=== PATIENT | female | born 1935 | race Caucasian/White ===

== ENCOUNTER 2018-12-08 05:18 | Emergency (ER) | payer MEDICARE, OTHER ==
[~2018-12-08] VITALS: Ht 160 cm; Wt 70.3 kg
--- OUTSIDE RECORDS SUMMARY | ~2018-12-08 | XMS | Encounter Summary ---
Demographics + + + | Address | [address] | | | [place] [address] | + + + | Home Phone | | + + + | Preferred Language | Unknown | + + + | Marital Status | | + + + | Adventism Affiliation | Unknown | + + + | Race | Unknown | + + + | Ethnic Group | Unknown | + + + Author + + + | Author | [facility] (Historical as of | | | 10-17-18) | + + + | Organization | [facility] (Historical as of | | | 10-17-18) | + + + | Address | Unknown | + + + | Phone | Unavailable | + + + Support + + + + + | Name | Relationship | Address | Phone | + + + + + | Mini Gudino | ECON | [address] | | | | | [place] | | | | | [address] | | + + + + + Care Team Providers + +------+ + | Care Guest Relations Manager Name | Role | Phone | + +------+ + | Kin Max MD | PCP | | + +------+ + Encounter Details +--------+ + + + + | Date | Type | Department | Care Team | Description | +--------+ + + + + | 10/02/ | Orders Only | [facility] | [place] | CKD (chronic kidney | | 2018 | | [place] [address] | disease), stage III; | | | | [address] | | Essential | | | | [place] [address] | | hypertension | | | | [phone] | | | +--------+ + + + + Social History + +-------+ +--------+------+ | Tobacco Use | Types | Packs/Day | Years | Date | | | | | Used | | + +-------+ +--------+------+ | Never Smoker | | | | | + +-------+ +--------+------+ + +---+---+---+ | Smokeless Tobacco: | | | | | Never Used | | | | + +---+---+---+ + + +---------+ + | Alcohol Use | Drinks/We | oz/Week | Comments | | | ek | | | + + +---------+ + | No | | | | + + +---------+ + + + + | Sex Assigned at | Date Recorded | | | | + + + | Not on file | | + + + as of this encounter Plan of Treatment Not on fileas of this encounter Procedures + +--------+ + + + | Procedure Name | Priori | Date/Time | Associated Diagnosis | Comments | | | ty | | | | + +--------+ + + + | CBC W/AUTO DIFF | Routin | 10/01/2018 | CKD (chronic | Results for this | | (REFLEX TO MANUAL) | e | 12:46 PM | kidney disease), | procedure are in the | | | | PDT | stage III Essential | results section. | | | | | hypertension | | + +--------+ + + + | URIC ACID | Routin | 10/01/2018 | CKD (chronic | Results for this | | | e | 12:46 PM | kidney disease), | procedure are in the | | | | PDT | stage III Essential | results section. | | | | | hypertension | | + +--------+ + + + | MAGNESIUM | Routin | 10/01/2018 | CKD (chronic | Results for this | | | e | 12:46 PM | kidney disease), | procedure are in the | | | | PDT | stage III Essential | results section. | | | | | hypertension | | + +--------+ + + + | RENAL FUNCTION PANEL | Routin | 10/01/2018 | CKD (chronic | Results for this | | | e | 12:46 PM | kidney disease), | procedure are in the | | | | PDT | stage III Essential | results section. | | | | | hypertension | | + +--------+ + + + in this encounter Results Uric acid (10/01/2018 12:46 PM) + +-------+ + + | Component | Value | Ref Range | Performed At | + +-------+ + + | URIC ACID | 5.4 | 2.3 - 6.6 | [facility] | | | | | LABORATORY | + +-------+ + + + + | Specimen | + + | Blood | + + + + + + + | Performing | Address | City/State/Zipcode | Phone Number | | Organization | | | | + + + + + | [facility] | [address] | [place] [address] | [phone] | | LABORATORY | [address] | | | + + + + + Renal function panel (10/01/2018 12:46 PM) + + + + + | Component | Value | Ref Range | Performed At | + + + + + | GLUCOSE | 144 (A) | 70 - 100 mg/dL | [facility] | | | | | LABORATORY | + + + + + | BUN | 22 | 6 - 23 mg/dL | [facility] | | | | | LAB[facility]ATORY | + + + + + | CREATININE | 1.16 (A) | 0.70 - 1.11 mg/dL | [facility] | | | | | LAB[facility]ATORY | + + + + + | PHOSPHORUS | 3.0 | 2.5 - 5.0 mg/dL | [facility] | | | | | LAB[facility]ATORY | + + + + + | Albumin | 4.0 | 3.5 - 5.0 | [facility] | | | | | LAB[facility]ATORY | + + + + + | SODIUM | 140 | 132 - 143 mmol/L | [facility] | | | | | LAB[facility]ATORY | + + + + + | POTASSIUM | 4.1 | 3.6 - 5.1 mmol/L | [facility] | | | | | LAB[facility]ATORY | + + + + + | CHLORIDE | 100 | 95 - 112 mmol/L | [facility] | | | | | LAB[facility]ATORY | + + + + + | CO2 | 28 | 19 - 31 mmol/L | [facility] | | | | | LAB[facility]ORY | + + + + + | ANION GAP AGAP | 16.1 | 7 - 21 mmol/L | [facility] | | | | | LAB[facility] | + + + + + | GFR MDRD Non Af Amer | | | [facility] | | | | | LAB[facility]ATORY | + + + + + | Phosphorus,Inorganic | | | [facility] | | | | | LAB[facility]ORY | + + + + + | BUN/CREAT | 19.0 | 6.0 - 28.6 | [facility] | | | | | LAB[facility] | + + + + + | CALCIUM | 9.4 | 8.5 - 10.3 mg/dL | [facility] | | | | | LAB[facility]ORY | + + + + + | EGFR | 45 (A) | 60 - 140 mg/dL | [facility] | | | | | LAB[facility]ATORY | + + + + + + + | Specimen | + + | Blood | + + + + + + + | Performing | Address | City/State/Zipcode | Phone Number | | Organization | | | | + + + + + | [facility] | [address] | [place] [address] | [phone] | | LABORATORY | [address] | | | + + + + + Magnesium (10/01/2018 12:46 PM) + +-------+ + + | Component | Value | Ref Range | Performed At | + +-------+ + + | MAGNESIUM | 1.9 | 1.7 - 2.5 mg/dL | [facility] | | | | | LABORATORY | + +-------+ + + + + | Specimen | + + | Blood | + + + + + + + | Performing | Address | City/State/Zipcode | Phone Number | | Organization | | | | + + + + + | [facility] | [address] | [place] [address] | [phone] | | LABORATORY | [address] | | | + + + + + CBC W/Auto Diff (Reflex to Manual) (10/01/2018 12:46 PM) + + + + + | Component | Value | Ref Range | Performed At | + + + + + | WBC | 6.1 | 4.5 - 11.0 10^3/mL | [facility] | | | | | LABORATORY | + + + + + | RBC | 3.74 (A) | 3.8 - 5.1 10^6/ L | [facility] | | | | | LABORATORY | + + + + + | HGB | 11.5 (A) | 12.0 - 16.0 g/dL | [facility] | | | | | LAB[facility]ORY | + + + + + | HCT | 35.4 | 35 - 45 % | [facility] | | | | | LAB[facility]ATORY | + + + + + | MCV | 94.6 | 81 - 99 fL | [facility] | | | | | LAB[facility]AT[facility] | + + + + + | MCH | 31 | 27 - 33 pg | [facility] | | | | | LAB[facility]ATORY | + + + + + | MCHC | 32 | 30 - 36 g/dL | [facility] | | | | | LABORATORY | + + + + + | PLT | 253 | 140 - 440 K/ L | [facility] | | | | | LABORATORY | + + + + + | RDW SD | 13.9 | 10.5 - 15.0 % | [facility] | | | | | LAB[facility]ATORY | + + + + + | MPV | | fL | [facility] | | | | | LAB[facility] | + + + + + | DIFF TYPE | | | [facility] | | | | | LAB[facility] | + + + + + | NEUTROPHILS | 54.2 | 39 - 80 % | [facility] | | | | | LAB[facility]ATORY | + + + + + | LYMPHOCYTES | 30.5 | 24 - 44 % | [facility] | | | | | LABORATORY | + + + + + | MONOCYTES | 10.7 | 0 - 12 % | [facility] | | | | | LAB[facility]ATORY | + + + + + | EOSINOPHILS | 4.1 | 0 - 6 % | [facility] | | | | | LAB[facility]ATORY | + + + + + | BASOPHILS | 0.5 | 0 - 2 % | [facility] | | | | | LAB[facility]ATORY | + + + + + | NEUTROPHILS ABS | | / L | [facility] | | | | | LABORATORY | + + + + + | LYMPHOCYTES ABS | | / L | [facility] | | | | | LAB[facility]ATORY | + + + + + | MONOCYTES ABS | | / L | [facility] | | | | | LAB[facility]ATORY | + + + + + | EOSINOPHILS ABS | | / L | [facility] | | | | | LABORATORY | + + + + + | BASOPHILS ABS | | / L | [facility] | | | | | LAB[facility]ATORY | + + + + + + + | Specimen | + + | Blood | + + + + + + + | Performing | Address | City/State/Zipcode | Phone Number | | Organization | | | | + + + + + | [facility] | [address] | [place] [address] | [phone] | | LABORATORY | [address] | | | + + + + + in this encounter Visit Diagnoses + + | Diagnosis | + + | CKD (chronic kidney disease), stage III | + + | Essential hypertension | + + | Unspecified essential hypertension | + +"
--- OUTSIDE RECORDS SUMMARY | ~2018-12-08 | XMS | Clinical Summary ---
Demographics + + + | Address | [address] | | | [place] [address] | + + + | Home Phone | | + + + | Preferred Language | Unknown | + + + | Marital Status | | + + + | Scientologist Affiliation | Unknown | + + + | Race | Unknown | + + + | Ethnic Group | Unknown | + + + Author + + + | Author | [facility] | | | and [place] | + + + | Organization | [facility] | | | and [place] | + + + | Address | Unknown | + + + | Phone | Unavailable | + + + Support + + + + + | Name | Relationship | Address | Phone | + + + + + | DELANO FERNANDO ECON | Unknown | | + + + + + | Delano Fernando | ECON | [address] | | | | | [place] | | | | | [address] | | + + + + + Care Team Providers + +------+ + | Care Parts Clerk Name | Role | Phone | + +------+ + | Kin Max MD | PCP | | + +------+ + Allergies + + + + + + | Active Allergy | Reactions | Severity | Noted | Comments | | | | | Date | | + + + + + + | Iodinated Diagnostic | Other (See Comments) | Medium | 04/17/19 | Does not remember | | Agents | | | 13 | | + + + + + + | Sulfa Antibiotics | Other (See Comments) | Medium | 04/17/19 | Unable to remember | | | | | 13 | | + + + + + + Medications + + + +---------+------+------+-------+ | Medication | Sig | Dispensed | Refills | Star | End | Statu | | | | | | t | Date | s | | | | | | Date | | | + + + +---------+------+------+-------+ | amLODIPine | Take 10 mg by mouth | | 0 | 02/1 | | Activ | | (NORVASC) 10 MG | daily. | | | 07/20 | | e | | tablet | | | | 13 | | | + + + +---------+------+------+-------+ | aspirin 81 mg EC | Take 81 mg by mouth | | 0 | 02/1 | | Activ | | tablet | daily. | | | 20 | | e | | | | | | 13 | | | + + + +---------+------+------+-------+ | calcium, as | Take 600 mg by mouth | | 0 | 02/1 | | Activ | | carbonate, (OS-SHAILESH) | daily. | | | 20 | | e | | 600 MG TABS | | | | 13 | | | + + + +---------+------+------+-------+ | ferrous sulfate | Take 1 tablet by | | 0 | 02/1 | | Activ | | (FERATAB) 300 (60 | mouth every other | | | 6/20 | | e | | Fe) MG TABS | day. | | | 13 | | | + + + +---------+------+------+-------+ | simvastatin | Take 20 mg by mouth | | 0 | /2 | | Activ | | (ZOCOR) 20 mg tablet | daily. | | | 03/22 | | e | | | | | | 15 | | | + + + +---------+------+------+-------+ | oxybutynin | | | 0 | /2 | | Activ | | (DITROPAN) 5 mg | | | | 11/20 | | e | | tablet | | | | 19 | | | + + + +---------+------+------+-------+ Active Problems + + + | Problem | Noted Date | + + + | Essential hypertension | 10/03/2017 | + + + | Rheumatoid arthritis involving multiple sites with positive | 08/01/2016 | | rheumatoid factor | | + + + | High risk medication use | 08/01/2016 | + + + | ILD (interstitial lung disease) | 08/01/2016 | + + + | Primary osteoarthritis involving multiple joints | 08/01/2016 | + + + | Secondary hyperparathyroidism | 08/05/2012 | + + + + + | Overview: Mild. | + + + + + | Heme positive stool | 04/21/2012 | + + + | CKD (chronic kidney disease), stage III | 04/21/2012 | + + + | Pulmonary embolism | 04/18/2012 | + + + | Screening for hyperlipidemia | 04/18/2012 | + + + | Elevated troponin | 04/17/2012 | + + + | Pneumonia multifocal | 04/17/2012 | + + + | Hyperglycemia | 04/17/2012 | + + + | Anemia | 04/17/2012 | + + + Encounters +--------+ + + + + | Date | Type | Specialty | Care Team | Description | +--------+ + + + + | 10/01/ | Orders Only | Nephrology | Bandar Mccann, | Chronic kidney | | 2019 | | | [employer] | disease, stage III | | | | | | (moderate) (HCC); | | | | | | Essential (primary) | | | | | | hypertension | +--------+ + + + + from Last 3 Months Family History + + +------+ + | Medical History | Relation | Name | Comments | + + +------+ + | Cancer | Brother | | ovarian cancer | + + +------+ + | Cancer | Father | | colon cancer | + + +------+ + | Kidney disease | Maternal | | | | | Grandmoth | | | | | er | | | + + +------+ + | Kidney disease | Mother | | | + + +------+ + | Cancer | Paternal | | stomach cancer | | | Grandfath | | | | | er | | | + + +------+ + | Cancer | Sister | | breast cancer | + + +------+ + + +------+ + + | Relation | Name | Status | Comments | + +------+ + + | Brother | | | | + +------+ + + | Brother | | | | + +------+ + + | Father | | | | + +------+ + + | Father | | | | + +------+ + + | Maternal Grandmother | | | | + +------+ + + | Maternal Grandmother | | | | + +------+ + + | Mother | | | | + +------+ + + | Mother | | | | + +------+ + + | Paternal Grandfather | | | | + +------+ + + | Paternal Grandfather | | | | + +------+ + + | Sister | | | | + +------+ + + | Sister | | | | + +------+ + + Social History + +-------+ +--------+------+ | Tobacco Use | Types | Packs/Day | Years | Date | | | | | Used | | + +-------+ +--------+------+ | Never Smoker | | | | | + +-------+ +--------+------+ + + + | Sex Assigned at | Date Recorded | | | | + + + | Not on file | | + + + + + + + | Job Start Date | Occupation | Industry | + + + + | Not on file | Not on file | Not on file | + + + + + + + + | Travel History | Travel Start | Travel End | + + + + + + | No recent travel history available. | + + Last Filed Vital Signs + + + + | Vital Sign | Reading | Time Taken | + + + + | Blood Pressure | 122/58 | 10/02/2018 1011 PDT | + + + + | Pulse | 62 | 10/02/2018 1011 PDT | + + + + | Temperature | 36.6 C (97.9 F) | 10/03/2017 1157 PDT | + + + + | Respiratory Rate | - | - | + + + + | Oxygen Saturation | - | - | + + + + | Inhaled Oxygen | - | - | | Concentration | | | + + + + | Weight | 74.6 kg (164 lb 8 | 10/02/20181010 PDT | | | oz) | | + + + + | Height | 160 cm (5' 3") | 10/02/20181010 PDT | + + + + | Body Mass Index | 29.14 | 10/02/20181010 PDT | + + + + Plan of Treatment + + + + + | Health Maintenance | Due Date | Last Done | Comments | + + + + + | Vaccine: | | | | | Dtap/Tdap/Td (1 - | 7 | | | | Tdap) | | | | + + + + + | Vaccine: Zoster (1 | | | | | of 2) | 8 | | | + + + + + | Vaccine: | | | | | Pneumococcal 65+ | 3 | | | | Low/Medium Risk (1 | | | | | of 2 - PCV13) | | | | + + + + + | Adult Annual | | | | | Wellness Visit | 9 | | | + + + + + | Vaccine: Influenza | | 04/19/2012 | | | (#1) | 9 | | | + + + + + Procedures + +--------+ + + + | Procedure Name | Priori | Date/Time | Associated Diagnosis | Comments | | | ty | | | | + +--------+ + + + | EXTERNAL LAB: CBC | Routin | 10/01/2018 | | Results for this | | | e | 12:46 PDT | | procedure are in the | | | | | | results section. | + +--------+ + + + | URIC ACID | Routin | 10/01/2018 | | Results for this | | | e | 12:46 PDT | | procedure are in the | | | | | | results section. | + +--------+ + + + | MAGNESIUM | Routin | 10/01/2018 | | Results for this | | | e | 12:46 PDT | | procedure are in the | | | | | | results section. | + +--------+ + + + | RENAL FUNCTION PANEL | Routin | 10/01/2018 | | Results for this | | | e | 12:46 PDT | | procedure are in the | | | | | | results section. | + +--------+ + + + from Last 3 Months Results External Lab: CBC (10/01/2018 12:46 PDT) + + + + + + | Component | Value | Ref Range | Performed | Pathologist | | | | | At | Signature | + + + + + + | WBC | 6.1 | 4.5 - 11.0 10 | EXTERNAL | | | | | | LAB | | + + + + + + | RED CELL | 3.74 (A) | 3.8 - 5.1 10 | EXTERNAL | | | COUNT | | | LAB | | + + + + + + | Hgb | 11.5 (A) | 12.0 - 16.0 | EXTERNAL | | | | | g/dL | LAB | | + + + + + + | Hematocrit, | 35.4 | 35 - 45 % | EXTERNAL | | | POC | | | LAB | | + + + + + + | MCV | 94.6 | 81 - 99 fL | EXTERNAL | | | | | | LAB | | + + + + + + | MCH | 31 | 27 - 33 pg | EXTERNAL | | | | | | LAB | | + + + + + + | MCHC | 32 | 30 - 36 g/dL | EXTERNAL | | | | | | LAB | | + + + + + + | Platelet | 253 | 140 - 440 K/ L | EXTERNAL | | | Count | | | LAB | | | Plasma | | | | | + + + + + + | RDW-CV | 13.9 | 10.5 - 15.0 % | EXTERNAL | | | | | | LAB | | + + + + + + | MPV | | fL | EXTERNAL | | | | | | LAB | | + + + + + + | Differentia | | | EXTERNAL | | | l Type | | | LAB | | + + + + + + | % | 54.2 | 39 - 80 % | EXTERNAL | | | Neutrophils | | | LAB | | + + + + + + | % | 30.5 | 24 - 44 % | EXTERNAL | | | Lymphocytes | | | LAB | | + + + + + + | % Monocytes | 10.7 | 0 - 12 % | EXTERNAL | | | | | | LAB | | + + + + + + | % | 4.1 | 0 - 6 % | EXTERNAL | | | Eosinophils | | | LAB | | + + + + + + | % Basophils | 0.5 | 0 - 2 % | EXTERNAL | | | | | | LAB | | + + + + + + | Absolute | | / L | EXTERNAL | | | Neutrophils | | | LAB | | + + + + + + | Absolute | | / L | EXTERNAL | | | Lymphocytes | | | LAB | | + + + + + + | Absolute | | / L | EXTERNAL | | | Monocytes | | | LAB | | + + + + + + | Absolute | | / L | EXTERNAL | | | Eosinophils | | | LAB | | + + + + + + | Absolute | | / L | EXTERNAL | | | Basophils | | | LAB | | + + + + + + + + | Specimen | + + | Blood | + + + +---------+ + + | Performing | Address | City/State/Zipcode | Phone Number | | Organization | | | | + +---------+ + + | EXTERNAL LAB | | | | + +---------+ + + Uric Acid (10/01/2018 12:46 PDT) + +-------+ + + + | Component | Value | Ref Range | Performed | Pathologist | | | | | At | Signature | + +-------+ + + + | Uric Acid | 5.4 | 2.3 - 6.6 | EXTERNAL | | | | | | LAB | | + +-------+ + + + + + | Specimen | + + | Blood | + + + +---------+ + + | Performing | Address | City/State/Zipcode | Phone Number | | Organization | | | | + +---------+ + + | EXTERNAL LAB | | | | + +---------+ + + Magnesium (10/01/2018 12:46 PDT) + +-------+ + + + | Component | Value | Ref Range | Performed | Pathologist | | | | | At | Signature | + +-------+ + + + | Magnesium | 1.9 | 1.7 - 2.5 mg/dL | EXTERNAL | | | | | | LAB | | + +-------+ + + + + + | Specimen | + + | Blood | + + + +---------+ + + | Performing | Address | City/State/Zipcode | Phone Number | | Organization | | | | + +---------+ + + | EXTERNAL LAB | | | | + +---------+ + + Renal Function Panel (10/01/2018 12:46 PDT) + + + + + + | Component | Value | Ref Range | Performed | Pathologist | | | | | At | Signature | + + + + + + | Glucose, | 144 (A) | 70 - 100 mg/dL | EXTERNAL | | | Fasting | | | LAB | | + + + + + + | BUN | 22 | 6 - 23 mg/dL | EXTERNAL | | | | | | LAB | | + + + + + + | Creatinine | 1.16 (A) | 0.70 - 1.11 | EXTERNAL | | | | | mg/dL | LAB | | + + + + + + | PHOSPHORUS | 3.0 | 2.5 - 5.0 mg/dL | EXTERNAL | | | | | | LAB | | + + + + + + | Albumin | 4.0 | 3.5 - 5.0 | EXTERNAL | | | | | | LAB | | + + + + + + | Na | 140 | 132 - 143 | EXTERNAL | | | | | mmol/L | LAB | | + + + + + + | K | 4.1 | 3.6 - 5.1 | EXTERNAL | | | | | mmol/L | LAB | | + + + + + + | Cl | 100 | 95 - 112 mmol/L | EXTERNAL | | | | | | LAB | | + + + + + + | CO2 | 28 | 19 - 31 mmol/L | EXTERNAL | | | | | | LAB | | + + + + + + | Anion Gap | 16.1 | 7 - 21 mmol/L | EXTERNAL | | | | | | LAB | | + + + + + + | eGFR if not | | | EXTERNAL | | | | | | LAB | | | [facility] | | | | | + + + + + + | Phosphorus, | | | EXTERNAL | | | Inorganic | | | LAB | | + + + + + + | BUN/Creatin | 19.0 | 6.0 - 28.6 | EXTERNAL | | | ine Ratio | | | LAB | | + + + + + + | Calcium | 9.4 | 8.5 - 10.3 | EXTERNAL | | | | | mg/dL | LAB | | + + + + + + | Estimated | 45 (A) | 60 - 140 mg/dL | EXTERNAL | | | GFR | | | LAB | | + + + + + + + + | Specimen | + + | Blood | + + + +---------+ + + | Performing | Address | City/State/Zipcode | Phone Number | | Organization | | | | + +---------+ + + | EXTERNAL LAB | | | | + +---------+ + + from Last 3 Months
--- OUTSIDE RECORDS SUMMARY | ~2018-12-08 | XMS | Clinical Summary ---
Demographics + + + | Address | [address] | | | [place] [address] | + + + | Home Phone | | + + + | Preferred Language | Unknown | + + + | Marital Status | | + + + | Oriental Orthodox Affiliation | Unknown | + + + | Race | Unknown | + + + | Ethnic Group | Unknown | + + + Author + + + | Author | [facility] (Historical as of | | | 10-17-18) | + + + | Organization | [facility] (Historical as of | | | 10-17-18) | + + + | Address | Unknown | + + + | Phone | Unavailable | + + + Support + + + + + | Name | Relationship | Address | Phone | + + + + + | Mini Fernando | ECON | [address] | | | | | [place] | | | | | [address] | | + + + + + Care Team Providers + +------+ + | Care Billing Checker Name | Role | Phone | + +------+ + | Kin Max MD | PP | | + +------+ + Allergies + [...] | + + + + + + Current Medications + + +-------+---------+------+------+-------+ | Prescription | Sig. | Disp. | Refills | Star | End | Statu | | | | | | t | Date | s | | | | | | Date | | | + + +-------+---------+------+------+-------+ | amlodipine | Take 10 mg by mouth | | | | | Activ | | (NORVASC) 10 MG | daily. | | | | | e | | tablet | | | | | | | + + +-------+---------+------+------+-------+ | aspirin EC 81 MG | Take 81 mg by mouth | | | | | Activ | | EC tablet | daily. | | | | | e | + + +-------+---------+------+------+-------+ | calcium carbonate | Take 600 mg by mouth | | | | | Activ | | (OS-SHAILESH) 600 MG TABS | daily. | | | | | e | + + +-------+---------+------+------+-------+ | Ferrous Sulfate | Take 1 tablet by | | | | | Activ | | 300 (60 FE) MG TABS | mouth every other | | | | | e | | | day. | | | | | | + + +-------+---------+------+------+-------+ | simvastatin | Take 20 mg by mouth | | | 11/02 | | Activ | | (ZOCOR) 20 MG tablet | daily. | | | 03/22 | | e | | | | | | 15 | | | + + +-------+---------+------+------+-------+ | oxybutynin | | | | 03/04 | | Activ | | (DITROPAN) 5 MG | | | | 11/20 | | e | | tablet | | | | 19 | | | + + +-------+---------+------+------+-------+ Active Problems + + + | Problem | Noted Date | + + + | Essential hypertension | 10/03/2017 | + + + | Rheumatoid arthritis involving multiple sites with positive | 08/01/2016 | | rheumatoid factor (HCC) | | + + + + + | Last Assessment & Plan: Responding well to current treatment | | plan. No change in treatment plan. Patient understands that | | treatment is shelter and if patient fails to continue regimen , | | the disease has propensity to flare.Discussed that she may ask | | her PCP to manage the Arava so that she doesn't have to travel | | here every 3-4 months. She should have her CBC and CMP checked | | every 3-4 months by her PCP should they agree to this. We would | | be happy to see her yearly or PRN. | + + + + + | High risk medication use | 08/01/2016 | + + + + + | Last Assessment & Plan: Basic labs Monitored (CBC,CMP and | | ESR): OrderedLabs routinely ordered due to high risk medication | | use- Monitored for cytopenias, liver toxicity, renal dysfunction | | and disease activity. Hepatitis panel- UPDATEThis will be checked | | every 5 years based on patients risk or at time of biologic drug | | change. Chest x-ray satisfactory 2013 | + + + + + | ILD (interstitial lung disease) | 08/01/2016 | + + + + + | Last Assessment & Plan: Patient reports as stable. Followed | | by PCP | + + + + + | Primary osteoarthritis involving multiple joints | 08/01/2016 | + + + + + | Last Assessment & Plan: Stable. Patient is taking OTC | | analgesics PRN for pain. | + + + + + | Secondary hyperparathyroidism (HCC) | 08/05/2012 | + + + + + | Overview: Mild. | + + + + + | Heme positive stool | 04/21/2012 | + + + | CKD (chronic kidney disease), stage III | 04/21/2012 | + + + + + | Last Assessment & Plan: We will get nephology notes and | | consider decreasing Arava dose. Current calculated Creatinine | | clearance is 46.21ml/min | + + + + + | Pulmonary embolism (HCC) | 04/18/2012 | + + + | Screening for hyperlipidemia | 04/18/2012 | + + + | Elevated troponin | 04/17/2012 | + + + | Pneumonia multifocal | 04/17/2012 | + + + | Hyperglycemia | 04/17/2012 | + + + | Anemia | 04/17/2012 | + + + Resolved Problems + + + + | Problem | Noted | Resolved | | | Date | Date | + + + + | Hypokalemia | 04/17/19 | | | | 13 | 9 | + + + + Encounters +--------+ + + + + | Date | Type | Specialty | Care Team | Description | +--------+ + + + + | 10/02/ | Office | | Bandar Mccann, | CKD (chronic kidney | | 2019 | Visit | | [facility] | disease), stage III | | | | | | (Primary Dx); | | | | | | Essential | | | | | | hypertension | +--------+ + + + + | 10/02/ | Documentati | | Oliver | Daniel Only (10/01/18) | | 2018 | on Only | | [place] | | +--------+ + + + + | 10/02/ | Orders Only | | Oliver | CKD (chronic kidney | | 2018 | | | [place] | disease), stage III; | | | | | | Essential | | | | | | hypertension | +--------+ + + + + | 09/24/ | Telephone | | Mary Castillo (appt/labs | 2018 | | | RUSSELL Diamond | reminder) | +--------+ + + + + from Last 3 Months Immunizations + + + + | Name | Dates Previously Given | Next Due | + + + + | Influenza Split | 04/19/2012 | | + + + + Family History + + +------+ + | [...] on file | | + + + Last Filed Vital Signs + + + + | Vital Sign | Reading | Time Taken | + + + + | Blood Pressure | 122/58 | 10/02/2018 10:09 AM PDT | + + + + | Pulse | 62 | 10/02/2018 10:09 AM PDT | + + + + | Temperature | 36.6 C (97.9 F) | 10/03/2017 11:51 AM PDT | + + + + | Respiratory Rate | 16 | 08/13/2013 11:13 AM PDT | + + + + | Oxygen Saturation | 96% | 10/03/2017 11:51 AM PDT | + + + + | Inhaled Oxygen | - | - | | Concentration | | | + + + + | Weight | 74.6 kg (164 lb 8 | 10/02/2018 10:09 AM PDT | | | oz) | | + + + + | Height | 160 cm (5' 3") | 10/02/2018 10:09 AM PDT | + + + + | Body Mass Index | 29.14 | 10/02/2018 10:09 AM PDT | + + + + Plan [...] | + + + + + | DEXA SCAN SCREENING | | | | | | 3 | | | + + + + + | Vaccine: | | | | | Pneumococcal 65+ | 3 | | | | Low/Medium Risk (1 | | | | | of 2 - PCV13) | | | | + + + + + | Vaccine: Influenza | | | | | (#1) | 9 | [...] | | + +--------+ + + + from Last 3 Months Results CBC W/Auto Diff (Reflex to Manual) (10/01/2018 [...] + + + | [facility] | [address] | [place] [address] | [phone] | | LABORATORY | Blvd[address] | | | + + + + + Uric acid (10/01/2018 12:46 PM) + +-------+ [...] + + + | [facility] | [address] | [place] [address] | [phone] | | LABORATORY | Blvd[address] | | [...] | [facility] | [address] | [place] [address] | [phone] | | LABORATORY | Blvd. | | [...] + + + | [facility] | [address] | [place] [address] | [phone] | | LABORATORY | Blvd. | | | + + + + + from Last 3 Months Insurance + +--------+ +------+-------+ + | Payer | Benefi | Subscriber | Type | Phone | Address | | | t Plan | ID | | | | | | / | | | | | | | Group | | | | | + +--------+ +------+-------+ + | MEDICARE | MEDICA | [id number] | | | [address] | | | [place] | | | | [place] [phone] | | | IP-OP | | | | | + +--------+ +------+-------+ + | [employer] | ODS | [id number] | | | | | | HEALTH | | | | | | | PLAN | | | | | + +--------+ +------+-------+ + + +--------+ +--------+ + + | Guarantor Name | Accoun | Relation to | Date | Phone | Billing Address | | | t Type | Patient | of | | | | | | | | | | + +--------+ +--------+ + + | MINI FERNANDO | Person | Self [birth year] | Home: | [address] | | | al/Fam | | 1936 | [phone] [place] | | | [place] | | | [address] | [phone] | + +--------+ +--------+ + +
--- OUTSIDE RECORDS SUMMARY | ~2018-12-08 | XMS | Encounter Summary ---
Demographics + + + | Address | [address] | | | [place] [address] | + + + | Home Phone | | + + + | Preferred Language | Unknown | + + + | Marital Status | | + + + | Latter Day Affiliation | Unknown | + + + | Race | Unknown | + + + | Ethnic Group | Unknown | + + + Author + + + | Author | [facility] | | | and [place] | + + + | Organization | [facility] | | | and [place] | [...] | Delano Fernando | ECON | [address] | | | | | [place] | | | | | [address] | | + + + + + Care Team Providers + +------+ + | Care [employer] Assistant Manager Name | Role | Phone | + +------+ + PCP | Unavailable | + +------+ + Encounter Details +--------+ + + + + | Date | Type | Department | Care Team | Description | +--------+ + + + + | 10/01/ | Orders Only | [facility] | Bandar Mccann, | Chronic kidney | | 2019 | | NEPHROLOGY [place] | PRIVATE DETECTIVE [address] | disease, stage III | | | | [address] | [address] | (moderate) (HCC); | | | | [address], [place] | [place] [address] | Essential (primary) | | | | [address] | [phone] | hypertension | | | | [phone] | | | +--------+ + + + + Social History + +-------+ +--------+------+ | Tobacco Use | Types | Packs/Day | Years | Date | | | | | Used | | + +-------+ +--------+------+ | Never Assessed | | | | | + +-------+ [...] recent travel history available. | + + documented as of this encounter Plan of Treatment + +--------+ + + | Name | Priori | Associated Diagnoses | Order Schedule | | | ty | | | + +--------+ + + | Protein/Creatinine Ratio, Urine | Routin | Chronic kidney | Expected: | | | e | disease, stage III | 09/24/2018, Expires: | | | | (moderate) (HCC) | 04/10/2019 | | | | Essential (primary) | | | | | hypertension | | + +--------+ + + documented as of this encounter Procedures + +--------+ + [...] section. | + +--------+ + + + documented in this encounter Results External Lab: CBC (10/01/2018 12:46 PDT) [...] | | | LAB | | | [facility] | | | | | + + [...] | | | + +---------+ + + documented in this encounter Visit Diagnoses + + | Diagnosis | + + | Chronic kidney disease, stage III (moderate) (HCC) Chronic kidney disease, Stage III | | (moderate) | + + | Essential (primary) hypertension Unspecified essential hypertension | + + documented in this encounter"
--- OUTSIDE RECORDS SUMMARY | ~2018-12-08 | XMS | Encounter Summary ---
Demographics + + + | Address | [address] | | | [place] [address] | + + + | Home Phone | | + + + | Preferred Language | Unknown | + + + | Marital Status | | + + + | Amish Affiliation | Unknown | + + + | Race | Unknown | + + + | Ethnic Group | Unknown | + + + Author + + + | Author | [facility] (Historical as of | | | 10-17-18) | + + + | Organization | [facility] (Historical as of | | | 10-17-18) [...] [place] | | | | | [address] | | + + + + + Care Team Providers + +------+ + | Care Voltage Regulator Assembler Name | Role | Phone | + +------+ + | Kin Max MD PCP | | + +------+ + Encounter Details +--------+---------+ + + + | Date | Type | Department | Care Team | Description | +--------+---------+ + + + | 10/02/ | Office | [facility] | Bandar Mccann, | CKD (chronic kidney | | 2019 | Visit | [address] [address] | [place] ADMINISTRATOR [place] | disease), stage III | | | | [address] | [address] | (Primary Dx); | | | | [place] [address] | [place] [address] | Essential | | | | [phone] | [phone] | hypertension | | | | | | | +--------+---------+ + + + Social History + +-------+ [...] + + + as of this encounter Last Filed Vital Signs + + + + | Vital Sign | Reading | Time Taken | + + + + | Blood Pressure | 122/58 | 10/02/2018 10:09 AM PDT | + + + + | Pulse | 62 | 10/02/2018 10:09 AM PDT | + + + + | Temperature | - | - | + + + + | Respiratory [...] AM PDT | + + + + in this encounter Instructions Patient Instructions - Bandar Mccann ARNP - 10/02/2018 10:20 AM PDTMedication Changes made at today's visit: None Next LAB WORK in about: 6 Months You do NOT need to fast for this lab work, keep hydrated. Next APPOINTMENT: in about 6 Months Keep hydrated with water. Please have lab work done 1 weeks prior to your appointment. Make sure you are well hydrated prior to going to the lab and are able to give a urine s ample. Call the office with any questions or concerns. Please bring all of your medications in the pharmacy bottles to every visit so a medicat ion review can be done. We recommend to measure your BP at least daily, twice daily if possible, record it and b ring record to every appointment with every healthcare provider you see. DO NOT TAKE any anti-inflammatory drugs such Ibuprofen, Diclofenac, Motrin, Advil, Delong xicam, naprosyn (Aleve), Celebrex, decongestants containing pseudoephedrine (such as some fo mary of Sudafed or Actifed) or herbal supplements (because of lack of FDA approval) Call our office if you have blood pressure over 150/90 on more than one occasion, or low blood pressure that is concerning. If you experience diarrhea and /or vomiting for more than 24 hours with no relief please seek medical help immediately. The treatments that are recommended to slow the progression of Chronic Kidney Disease in clude blood sugar control, blood pressure control, healthy body weight (BMI less than 30 kg/ m2), avoid sedentary lifestyle, avoid smoking/ tobacco, avoid NSAIDs, worsening nausea, vomi ting, no or low appetite and/or frequent diarrhea and avoid IV contrast. Do not drink alcohol, drink water when thirsty. If you smoke, you must quit. Smoking worsens kidney disease. Avoid caffeinated beverages such as soda pop, coffee, espresso drinks, energy drinks. Make all healthcare providers aware of the presence of kidney disease and request to adj ust all medications according to level of kidney function and to avoid nephrotoxic medicatio ns if possible, including but not limited to antibiotics. Call us with any questions. Short term use of acetaminophen (Tylenol) for fever or pain is okay. If in doubt please call our office for verification. Avoid exposure to IV contrast agents (DYE) used in CT scans, MRI's, Fluoroscopy, or in h eart catheterization procedures unless necessary or for a life saving procedure. Low salt diet, less than 2gm daily. in this encounter Progress Notes Bandar Mccann ARNP - 10/02/2018 10:20 AM PDTFormatting of this note may be different f rom the original. Patient Active Problem List Diagnosis Elevated troponin Pneumonia multifocal Hyperglycemia Anemia Pulmonary embolism (HCC) Screening for hyperlipidemia Heme positive stool CKD (chronic kidney disease), stage III Secondary hyperparathyroidism (HCC) Rheumatoid arthritis involving multiple sites with positive rheumatoid factor (HCC) High risk medication use ILD (interstitial lung disease) Primary osteoarthritis involving multiple joints Essential hypertension Dear Dr. Max: Thank you for the opportunity to see Ms. Gudino in the office today to follow up on her CKD and its associated complications. As you are familiar with her case, I will not state her p ast history in detail. Briefly, she is a 83 y.o. female patient with past history as deline ated above. She sees Rheumatology for RA, on leflunomide. The patient has history of hypertension since ~1999. her BP control has been reportedly adrienne quate. she denies any history of prolonged exposure to NSAIDs or recent exposure to known ne phrotoxins. she denies any recurrent nephrolithiasis or pyelonephritis. she tells me that sh e's had no history of urinary retention, gross hematuria or dysuria. she has mild incontinen ce symptoms. No symptoms of UTI. she has 1 or 2 nightly nocturia. No history of passing kidney stones. s he has no foamy urine either. her baseline Creatinine is 1.08. There is no family history of renal genetic diseases such as PKD. she says that she feels 'good ' today, she has chronic SOB, wears O2 continously, she has c hronic diarrhea and constipation, chronic arthritis pains in her hands. she denies any blur red vision tinnitus, headache, fever, chills, or cough. No nausea, vomiting, abdominal pain , melena, or hematochezia. No chest pain, palpitation, dizziness, loss of consciousness, or thopnea, paroxysmal nocturnal dyspnea, or leg edema. She drinks mostly coffee and little water. The following portions of the patient's history were reviewed and updated as appropriate: a llergies, current medications, past medical history, past social history, past surgical hist ory, family history and problem list. As in History of Present Illness & in Assessment. All the twelve systems were reviewed and were otherwise negative. Current Outpatient Prescriptions Medication Sig Dispense Refill amlodipine (NORVASC) 10 MG tablet Take 10 mg by mouth daily. aspirin EC 81 MG EC tablet Take 81 mg by mouth daily. calcium carbonate (OS-SHAILESH) 600 MG TABS Take 600 mg by mouth daily. Ferrous Sulfate 300 (60 FE) MG TABS Take 1 tablet by mouth every other day. oxybutynin (DITROPAN) 5 MG tablet simvastatin (ZOCOR) 20 MG tablet Take 20 mg by mouth daily. leflunomide (ARAVA) 20 MG tablet No current facility-administered medications for this visit. Physical Exam: BP 122/58 (BP Location: Left upper arm, Patient Position: Sitting) | Pulse 62 | Ht 1.6 m (5' 3") | Wt 74.6 kg (164 lb 8 oz) | BMI 29.14 kg/m General appearance: Pleasant, not in acute distress. Neck: Supple without tracheal deviation or jugular venous distension. Head and ENT: Head is atraumatic. The oropharynx is without erythema or thrush. Eyes: Anicteric. The extraocular muscle movements are normal. Lungs: Clear to auscultation bilaterally. There are no wheezes. On continuous 2L O2 per NC . Heart: Regular rate and rhythm without any rub, gallop. no murmur. Abdominal exam: Soft and nontender with normal bowel sounds. Musculoskeletal: No costovertebral angle tenderness bilaterally. Extremities: Warm to touch with trace leg edema. There is no cyanosis. Skin: There are no rashes, petechiae, or ecchymosis. Neurological: Awake, alert, and oriented to time, place, and person. Psychiatric: The patient s behavior is normal. Judgment and thought content are normal. Lab Results Component Value Date BUN 22 10/01/2018 CREATININE 1.16 (A) 10/01/2018 EGFR 45 (A) 10/01/2018 NA 140 10/01/2018 K 4.1 10/01/2018 CL 100 10/01/2018 CO2 28 10/01/2018 CA 9.4 10/01/2018 PHOS 3.0 10/01/2018 MG 1.9 10/01/2018 ALB 4.0 10/01/2018 HGB 11.5 (A) 10/01/2018 URICACID 5.4 10/01/2018 WBC 6.1 10/01/2018 HCT 35.4 10/01/2018 FERRITIN 226.1 (A) 04/06/2018 LABIRON 26.5 04/06/2018 LABPROT 406.3 (A) 04/06/2018 [id number] 45 04/07/2017 Assessment: Ms. Gudino is a 83 y.o. female patient with stage IIIA CKD on a background of hypertension. The most likely pathology here is hypertensive nephrosclerosis/arteriolosclerosis. RENAL FUNCTION: Relatively stable BLOOD PRESSURE: Reportedly controlled - No log today BLOOD SUGAR: Reportedly normal ELECTROLYTES: Normal ANEMIA: Mild VITAMIN D: Normal with replacement PARATHYROID HORMONE: Mild URIC ACID: Ok PROTEINURIA: Minimal URINALYSIS: No uti or hematuria VOLUME STATUS: Euvolumic. Discussions: I discussed today with Ms.. Gudino the meaning of her mild CKD and the interaction of that w ith her hypertension. I stressed the importance of keeping her BP controlled and avoiding getting dehydrated if w e are to have a chance at helping preserve her renal function. She showed good understandin g. I gave her instructions on how to chart her blood pressure [facility] the [facility]. She is to call us if they fall outside of the optimal provided range. She will bring her sphygmomanometer for validation once a year. She will strictly abide b y a low salt diet and will avoid all kinds of NSAIDs for analgesia. PLAN: I made no changes to vasoactive medications. I asked her to keep hydrated with water, drink when thirsty. Follow up labs include: RFP, Magnesium, cbc, uric acid, Urine total soqafic-gj-riajozukk e ratio. BP Charting: she will bring me back her home BP charts in 4 weeks. At that time, I will decide whether any changes to her vasoactive regimen are warranted. She will continue to F/U with your office regularly. She will have labs done before she comes back in [address] Max for the opportunity to follow up with this patient and be part of [facility] care team. Please do not hesitate to call me at any time with questions or concerns. Truly yours, Band[facility]ccann [facility] Plan of Treatment Not on fileas of this encounter Visit Diagnoses + + | Diagnosis | + + | CKD (chronic kidney disease), stage III - Primary | + + | Essential hypertension | + + | Unspecified essential hypertension | + +
--- OUTSIDE RECORDS SUMMARY | ~2018-12-08 | XMS | Encounter Summary ---
Demographics + + + | Address | [address] | | | [place] [address] | + + + | Home Phone | | + + + | Preferred Language | Unknown | + + + | Marital Status | | + + + | Advent Affiliation | Unknown | + + + | Race | Unknown | + + + | Ethnic Group | Unknown | + + + Author + + + | Author | [facility] (Historical as of | | | 10-17-18) | + + + | Organization | [facility] (Historical as of | | | 10-17-18) [...] [place] | | | | | [address] | | + + + + + Care Team Providers + +------+ + | Care Textile Coating Machine Operator Name | Role | Phone | + +------+ + | Kin Max MD | PCP | | + +------+ + Reason for Visit + + + | Reason | Comments | + + + | Labs Only | 10/01/18 | + + + Encounter Details +--------+ + + + + | Date | Type | Department | Care Team | Description | +--------+ + + + + | 10/02/ | Documentati | [facility] | Mary Boyd Only (10/01/18) | | 2019 | on Only | [place] [address] | [place] | | | | | [address] | | | | | | [place] [address] | | | | | | [phone] | | | +--------+ + + + [...] on fileas of this encounter Visit Diagnoses Not on filein this encounter"
--- OUTSIDE RECORDS SUMMARY | ~2018-12-08 | XMS | Encounter Summary ---
Demographics + + + | Address | [address] | | | [place] [address] | + + + | Home Phone | | + + + | Preferred Language | Unknown | + + + | Marital Status | | + + + | Taoism Affiliation | Unknown | + + + | Race | Unknown | + + + | Ethnic Group | Unknown | + + + Author + + + | Author | [facility] (Historical as of | | | 10-17-18) | + + + | Organization | [facility] (Historical as of | | | 10-17-18) [...] [place] | | | | | [address] | | + + + + + Care Team Providers + +------+ + | Care Prize Jacker Name | Role | Phone | + [...] Essential | | | | [place] [address] | | hypertension | | | | [phone] | | | +--------+ + + + [...] + + + + | [facility] | [address] | [place] [address] | [phone] | | LABORATORY | [address] | | [...] | [address] | [place] [address] | [phone] | | LABORATORY | Blvd. | | [...] + + + + | [facility] | [address] | [place] [address] | [phone] | | LABORATORY | Blvd. | | [...] + + + | [facility] | [address] | [place] [address] | [phone] | | LABORATORY | Blvd[address] | | | + + + + + in this encounter Visit Diagnoses + + | Diagnosis | + + | CKD (chronic kidney disease), stage III | + + | Essential hypertension | + + | Unspecified essential hypertension | + +"
--- OUTSIDE RECORDS SUMMARY | ~2018-12-08 | XMS | Encounter Summary ---
Demographics + + + | Address | [address] | | | [place] [address] | + + + | Home Phone | | + + + | Preferred Language | Unknown | + + + | Marital Status | | + + + | Uatsdin Affiliation | Unknown | + + + | Race | Unknown | + + + | Ethnic Group | Unknown | + + + Author + + + | Author | [facility]erged With [facility] (Historical as of | | | 10-17-18) | + + + | Organization | Merged With [facility] (Historical as of | | | 10-17-18) [...] [place] | | | | | [address] | | + + + + + Care Team Providers + +------+ + | Care Software Publisher Name | Role | Phone | + [...] | Visit | [place] [address] | 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 Gudino is a [...] blood pressure in the appropriate manner at [facility]. She is to call us if [...] RFP, Magnesium, cbc, uric acid, Urine total xfexado-oz-cupuzxrmt e ratio. BP Charting: she will bring [...] with this patient and be part of our [facility] care team. Please do not hesitate to call me at any time with questions or concerns. Truly yours, Bandar Mccann [facility] Nephrologyin this encounter Plan of Treatment Not on fileas of this encounter Visit Diagnoses + + | Diagnosis | + + | CKD (chronic kidney disease), stage III - Primary | + + | Essential hypertension | + + | Unspecified essential hypertension | + +
--- OUTSIDE RECORDS SUMMARY | ~2018-12-08 | XMS | Clinical Summary ---
Demographics + + + | Address | [address] | | | [place] [address] | + + + | Home Phone | | + + + | Preferred Language | Unknown | + + + | Marital Status | | + + + | Synagogue Affiliation | Unknown | + + + | Race | Unknown | + + + | Ethnic Group | Unknown | + + + Author + + + | Author | [facility] (Historical as of | | | 10-17-18) | + + + | Organization | [facility] (Historical as of | | | 10-17-18) [...] [place] | | | | | [address] | | + + + + + Care Team Providers + +------+ + | Care International Exchange Coordinator Name | Role | Phone | + [...] | | | | Activ | | (OS-SAHILESH) 600 MG TABS | daily. | | [...] Patient understands that | | treatment is long-term and if patient fails to continue regimen [...] | | 2019 | Visit | | BEAUTY SALES ADVISOR | disease), stage III | | | [...] + + + | [facility] | [address] | [place] [address] | [phone] | | LABORATORY | Blvd. | | [...] + + + | [facility] | [address] | [place] [address] | [phone] | | LABORATORY | Blvd. | | [...] | [facility] | [address] | [place] [address] | [phone] | | LABORATORY | Blvd. | | [...] + + + | [facility] | [address] | [place] [address] | [phone] | | LABORATORY | Blvd. | | [...] +------+-------+ + | MEDICARE | MEDICA | [id number] | | | [address] | | | RE | | | | [place] [phone] | | | IP-OP | | | | | + +--------+ +------+-------+ + | [employer] | ODS | [id number] | | | | | | HEALTH [...] | | | [place] | | | [address] | [phone] | + +--------+ +--------+ + +
--- OUTSIDE RECORDS SUMMARY | ~2018-12-08 | XMS | Encounter Summary ---
Demographics + + + | Address | [address] | | | [place] [address] | + + + | Home Phone | | + + + | Preferred Language | Unknown | + + + | Marital Status | | + + + | Taoism Affiliation | Unknown | + + + | Race | Unknown | + + + | Ethnic Group | Unknown | + + + Author + + + | Author | [facility] (Historical as of | | | 10-17-18) | + + + | Organization | [facility] (Historical as of | | | 10-17-18) [...] [place] | | | | | [address] | | + + + + + Care Team Providers + +------+ + | Care Swatch Cutter Name | Role | Phone | + +------+ + | Kin Max MD PCP | | + +------+ + Reason for Visit +--------+ + | Reason | Comments | +--------+ + | Other | appt/labs reminder | +--------+ + Encounter Details +--------+ + + + + | Date | Type | Department | Care Team | Description | +--------+ + + + + | 09/24/ | Telephone | [facility] | Anna, | Wyatt (appt/labs | | 2018 | | [address] | [address] | reminder) | | | | [address] | | | | | | [place] [address] | | | | | | [phone] | | | +--------+ + + + [...]
--- OUTSIDE RECORDS SUMMARY | ~2018-12-08 | XMS | Encounter Summary ---
Demographics + + + | Address | [address] | | | [place] [address] | + + + | Home Phone | | + + + | Preferred Language | Unknown | + + + | Marital Status | | + + + | Moravian Affiliation | Unknown | + + + | Race | Unknown | + + + | Ethnic Group | Unknown | + + + Author + + + | Author | [facility] (Historical as of | | | 10-17-18) | + + + | Organization | [facility] (Historical as of | | | 10-17-18) [...] [place] | | | | | [address] | | + + + + + Care Team Providers + +------+ + | Care Mash Processing Operator Name | Role | Phone | [...] Wyatt (appt/labs | | 2018 | | [address] | [address] | reminder) | | | | [address] | | | | | | [place] [address] | | | | | | [phone] | | | +--------+ + + + [...]
--- OUTSIDE RECORDS SUMMARY | ~2018-12-08 | XMS | Encounter Summary ---
Demographics + + + | Address | [address] | | | [place] [address] | + + + | Home Phone | | + + + | Preferred Language | Unknown | + + + | Marital Status | | + + + | Mormonism Affiliation | Unknown | + + + | Race | Unknown | + + + | Ethnic Group | Unknown | + + + Author + + + | Author | [facility] (Historical as of | | | 10-17-18) | + + + | Organization | [facility] (Historical as of | | | 10-17-18) [...] [place] | | | | | [address] | | + + + + + Care Team Providers + +------+ + | Care Shop Fitter Name | Role | Phone | + [...] [address] | | | | | | [place] [address] | | | | | | [phone] | | | +--------+ + + + [...]
--- OUTSIDE RECORDS SUMMARY | ~2018-12-08 | XMS | Encounter Summary ---
Demographics + + + | Address | [address] | | | [place] [address] | + + + | Home Phone | | + + + | Preferred Language | Unknown | + + + | Marital Status | | + + + | Sikhism Affiliation | Unknown | + + + | Race | Unknown | + + + | Ethnic Group | Unknown | + + + Author + + + | Author | [facility] | | | and [place] | + + + | Organization | [facility] | | | and [place] [...] [place] | | | | | [address] | | + + + + + Care Team Providers + +------+ + | Care Cabinetmaker Supervisor Name | Role | Phone | + +------+ + PCP | Unavailable | + +------+ + Encounter Details +--------+ + + + + | Date | Type | Department | Care Team | Description | +--------+ + + + + | 10/01/ | Orders Only | [facility] | Bandar Mccann, | Chronic kidney | | 2019 | | NEPHROLOGY [place] | DIGITAL STRATEGIST SENIOR MANAGER [address] | disease, stage III | | | | [address] | [address] | (moderate) (HCC); | | | | [address] [place], [place] | [place] [address] | Essential (primary) | | | | [address] | [phone] | hypertension | | | | [phone] | | | +--------+ + + + [...] | | | LAB | | | [place] | | | | | + + [...]
--- OUTSIDE RECORDS SUMMARY | ~2018-12-08 | XMS | Clinical Summary ---
Demographics + + + | Address | [address] | | | [place] [address] | + + + | Home Phone | | + + + | Preferred Language | Unknown | + + + | Marital Status | | + + + | Shinto Affiliation | Unknown | + + + | Race | Unknown | + + + | Ethnic Group | Unknown | + + + Author + + + | Author | [facility] | | | and [place] | + + + | Organization | [facility] | | | and [place] [...] | Delano Fernando | ECON | [address] | | | | | [place] | | | | | [address] | | + + + + + Care Team Providers + +------+ + | Care Gis Software Developer Name | Role | Phone | + [...] kidney | | 2019 | | | [employer] | disease, stage III | | | [...] | | | LAB | | | S[place] | | | | | + + [...]
[~2018-12-08 05:18] MED LIST: ARAVA20 MG PO; ASPIR-LOW81 MG PO; CALCIUM 600 +1 EAC7 PO; DITROPAN XL5 MG PO; IRON325 M1 PO; NORVASC10 MG PO; ZOCOR20 MG PO
[2018-12-08] MEDS ORDERED: CEFUROXIME250 MG PO (08:50)
== END 2018-12-08 09:36 | disposition home or self-care (01) ==
LOC: ED 05:18
PROC: 0T9B70Z Drainage of Bladder with Drainage Device, Via Natural or Artificial Opening (ICD-10-PCS; principal; 2018-12-08)
DX: N39.0 Urinary tract infection, site not specified (principal); I10 Essential (primary) hypertension; Z88.1 Allergy status to other antibiotic agents; Z88.2 Allergy status to sulfonamides; Z88.8 Allergy status to other drugs, medicaments and biological substances; Z79.82 Long term (current) use of aspirin; Z79.899 Other long term (current) drug therapy
CPT/HCPCS: 51701; 74176; 80053; 81001; 83690; 85025; 87088; 99284-25; J0696

== ENCOUNTER 2021-03-21 20:16 | Inpatient (IN) | payer MEDICARE, OTHER ==
[~2021-03-21] VITALS: Ht 160 cm; Wt 58.9 kg
[~2021-03-21 20:16] MED LIST changes: +CEFUROXIME250 MG PO
--- NOTE | 2021-03-22 11:27 | EKG ---
[facility] [address] [facility] [place], [place] [address] Signed Normal sinus rhythm Inferior infarct , age undetermined Abnormal ECG No previous ECGs available Confirmed by ASAD JOSEPH MD ([id number]) on 03/22/2021 11:27:27 AM Electronically Signed By: ASAD JOSEPH MD 03/22/21 1127 PATIENT NAME: MARCO ANTONIO FERNANDO Electrocardiogram DATE OF : 39 PHYSICIAN: ASAD JOSEPH MD REPORT #: [id number] REPORT IS CONFIDENTIAL AND NOT TO BE RELEASED WITHOUT AUTHORIZATION
== END 2021-03-24 13:20 | disposition home or self-care (01) | DRG 682 ==
LOC: ED 20:16 → MS 20:18
PROVIDERS: ADMIT Internal Medicine; ATTEND Internal Medicine
DX: N17.9 Acute kidney failure, unspecified (principal); J18.9 Pneumonia, unspecified organism; G93.41 Metabolic encephalopathy; Z20.822 Contact with and (suspected) exposure to COVID-19; G31.84 Mild cognitive impairment of uncertain or unknown etiology; J84.10 Pulmonary fibrosis, unspecified; M06.9 Rheumatoid arthritis, unspecified; I12.9 Hypertensive chronic kidney disease with stage 1 through stage 4 chronic kidney disease, or unspecified chronic kidney disease; N18.30 Chronic kidney disease, stage 3 unspecified; D63.1 Anemia in chronic kidney disease; E78.5 Hyperlipidemia, unspecified; E78.00 Pure hypercholesterolemia, unspecified; Z88.1 Allergy status to other antibiotic agents; Z88.2 Allergy status to sulfonamides; Z88.8 Allergy status to other drugs, medicaments and biological substances; Z79.82 Long term (current) use of aspirin; Z79.899 Other long term (current) drug therapy
CPT/HCPCS: 70450; 70551; 71045; 71250; 80053; 81001; 82565; 82607; 82803; 83605; 83880; 84443; 84484; 84520; 85025; 85610; 85730; 86140; 87040; 87070; 87205; 93005; 93010; 94667; 94668; 97116; 97162; 97165; 97530; C9803; G0378; G0480; J0696; J1650; J7121; U0003